=== PATIENT | female | born 1950 | race Caucasian/White ===

== ENCOUNTER → 2021-06-20 | Emergency (ER) | payer OTHER ==
[~2021-06-20] VITALS: Ht 157.5 cm; Wt 70.8 kg
[~2021-06-20] MED LIST: ATACAND32 MG PO; BUSPIRONE HCL7.5 MG PO; ECOTRIN81 MG PO; GLUMETZA500 MG PO; PRAVASTATIN SOD40 MG PO; SERTRALINE20 MG/1 ML; TEMAZEPAM15 MG PO; TOPROL XL25 M1 PO
== END | disposition designated cancer center or children's hospital (05) ==
LOC: ER 07:29
DX: R07.89 Other chest pain (principal); R20.2 Paresthesia of skin; Z88.2 Allergy status to sulfonamides; Z88.8 Allergy status to other drugs, medicaments and biological substances